=== PATIENT | female | born 1990 | race Caucasian/White ===

== ENCOUNTER 2020-11-23 11:05 | Emergency (ER) | payer OTHER, SELFPAY ==
[2020-11-23 11:56] VITALS: BP 130/74; PULSE 69; RESP 16; TEMP 35.6; O2SAT 99; BMI 39.6
--- NOTE | 2020-11-23 12:07 | ED.GENADULT ---
HPI - General Adult General Chief complaint: General Medical Stated complaint: MEDICATION Time Seen by Provider: 11/23/20 13:18 Source: patient Mode of arrival: ambulatory Limitations: no limitations History of Present Illness HPI narrative: Patient presents to ED for methadone. Patient recently discharged from [facility] and is going to sober house and her last dose was Thursday. Patient does not want to go into withdrawal. Patient denies any physical complaints Related Data Allergies Allergy/AdvReac Type Severity Reaction Status Date / Time ENVIRONMENTAL Allergy Unknown RUNNY Uncoded 01/19/20 17:52 NOSE, ITCHY EYES Review of Systems Review of Systems: Yes all other systems are reviewed and are negative Constitutional: Constitutional: Reports as per HPI and Reports no additional constitutional complaints Eyes: Eyes: Reports as per HPI and Reports no additional eye complaints ENT: Reports system reviewed and no additional complaints, except as documented and Reports as per HPI Cardiovascular: Cardiovascular: Reports as per HPI and Reports no additional cardiovascular complaints Respiratory: Respiratory: Reports as per HPI and Reports no additional respiratory complaints Gastrointestinal: Gastrointestinal: Reports as per HPI and Reports no additional gastrointestinal complaints Genitourinary: Genitourinary: Reports no additional female genitourinary complaints and Reports as per HPI Musculoskeletal: Musculoskeletal: Reports no additional musculoskeletal complaints and Reports as per HPI Neurologic: Reports system reviewed and no additional complaints, except as documented and Reports as per HPI Psychiatric: Psychiatric: Reports no additional psychiatric complaints and Reports as per HPI PMFSH Past Medical History Medical History (Updated 11/23/20 @ 12:54 by BRANDI Villafuerte) Kidney stones Substance abuse Surgical History (Updated 11/23/20 @ 12:02 by Blanca Calderón) H/O wrist surgery Previous section Social History Social History Advance Directives: Yes Advance Directives Information Provided: Yes Advance Directives on File: No Patient : No Physical Exam Vital Signs: Vital Signs: Last Vital Signs Temp 96.0 F L 11/23/20 11:56 Pulse 69 11/23/20 11:56 Resp 16 11/23/20 11:56 BP 130/74 11/23/20 11:56 Pulse Ox 99 11/23/20 11:56 Body Mass Index 39.6 Const: General: cooperative, healthy appearing, comfortable, no acute distress, well developed, alert, awake and Physically active Orientation/consciousness: oriented to time and patient oriented x3 HENMT: Head: Yes normal to inspection, Yes No palpable skull fracture present, Yes normocephalic and Yes atraumatic Eyes: General: appearance normal, both eyes and all related structures Neck: Neck: Yes normal visual inspection, Yes full ROM, Yes no lymphadenopathy, Yes no meningeal signs, Yes trachea midline, Yes supple and No tender Chest: Chest palpation & inspection: normal inspection of the chest and normal palpation of entire chest wall Resp: Effort & Inspection: normal respiratory effort and able to speak in complete sentences Auscultation: clear to auscultation bilaterally Cardio: Jugular venous distension: no JVD Heart sounds: S1 normal heart sound present and S2 normal heart sound present GI: Inspection: Yes normal to inspection and No abdominal wall ecchymosis Palpation (GI): Soft to palpation, not firm, nontender, no guarding and not rigid : General: No CVA tenderness and Yes no CVA tenderness Back/Spine/Pelvis: Back: no CVA tenderness, No CVA tenderness and No back tenderness Skin: General skin exam: no rashes or lesions noted and elasticity normal Neuro: General: oriented to time, patient oriented x3, gait normal, no meningeal signs and CN's II-XI intact bilaterally Cranial nerves: Yes CN's II-XII intact bilaterally Extrem: General: Yes normal to inspection and Yes full ROM Psych: Appearance: grossly normal, well kempt and not disheveled Course Course Course Narrative: Waiting for confirmation for methadone dose Reevaluation(s) Reevaluation #1: Methadone dose was verified and ordered. 90 mg ordered Time: 12:53 Medical Decision Making MDM Narrative Medical decision making narrative: Medication refill Discharge Plan Discharge Clinical Impression: Medication refill Patient Disposition: Home, Self-Care Instructions: Medicine Refill (ED) Additional Instructions: You were given you a methadone dose during this ER visit. Return to the ED for any concerning symptoms. Please follow-up with your PCP Interventions: ED Discharge Assessment Last Done: 11/23/20 13:35 Print Language: [place]
== END 2020-11-23 13:40 | disposition home or self-care (01) ==
PROVIDERS: Emergency Provider Emergency Medicine Emergency Medical Services
DX: Z76.0 Encounter for issue of repeat prescription (principal)
CPT/HCPCS: 99283

== ENCOUNTER 2023-03-29 12:15 | Emergency (ER) | payer OTHER, SELFPAY ==
[2023-03-29 13:15] VITALS: BP 90/37; PULSE 54; RESP 16; TEMP 36.3; O2SAT 97; BMI 29.1
--- NOTE | 2023-03-29 13:15 | ED_ITS ---
HPI - General Adult General Chief complaint: Medical Clearance Stated complaint: Med refill Time Seen by Provider: 03/29/23 13:19 Source: patient, RN notes reviewed and old records reviewed Mode of arrival: ambulatory History of Present Illness HPI narrative: 33-year-old female with a past medical history of substance abuse on methadone presenting to ED requesting methadone dosing. Admits usually receives dosing at [facility] in [place], however is visiting sister in this area. Reports receiving methadone dose at [facility] the past few days, patient presented with last dose letter for 125 mg from Thursday and Thursday. Denies drug use, SI/HI Related Data Allergies Allergy/AdvReac Type Severity Reaction Status Date / Time ENVIRONMENTAL Allergy Unknown RUNNY Uncoded 03/29/23 13:18 NOSE, ITCHY EYES Review of Systems Review of Systems: Constitutional: No Fever, No Chills, No Fatigue, No Malaise ENT/Mouth: No Ear Pain, No Nasal Congestion, No sore throat Cardiovascular: No Chest Pain, No SOB Respiratory: No Cough, No Sputum,No Dyspnea Gastrointestinal: No Nausea, No Vomiting, No Diarrhea, No Constipation, No Abdominal pain Musculoskeletal: No joint pain, No Myalgias, No Joint Swelling Skin: No Skin Lesions, No rash Neuro: No Weakness,No Headache Psych: No Anxiety/Panic, No Depression, No SI/HI/AH/VH, No Social Issues Yes all other systems are reviewed and are negative Constitutional: Constitutional: Reports as per HPI [facility] Past Medical History Attestation statement: The following information was validated with the patient. Source: old records reviewed Medical History Kidney stones Substance abuse Surgical History H/O wrist surgery Previous section Social History Smoked in Last 30 Days: Yes Advance Directives: No Advance Directives Information Provided: No Patient : No Physical Exam ED Vital Signs: Vital Signs - 24 hr 03/29/23 13:15 Temperature 97.3 F Pulse Rate 54 Respiratory Rate 16 Blood Pressure 90/37 L Pulse Oximetry 97 Oxygen Delivery Method Room Air BMI result Body Mass Index 29.1 Const General: cooperative, healthy appearing and no acute distress Orientation/consciousness: patient oriented x3 Limitations: no limitations HENMT Head: Yes normal to inspection and Yes atraumatic Ears: hearing grossly normal bilaterally General nose exam: Normal external nose present Face and sinus: Yes normal facial exam Eyes General: appearance normal, both eyes and all related structures EOM: EOMs intact bilaterally Neck Neck: Yes normal visual inspection and Yes no meningeal signs Resp Effort & Inspection: normal respiratory effort and no respiratory distress Cardio Rate: regular rate Skin Rashes: no rashes Wounds: no wounds Neuro General: patient oriented x3, tone normal and no meningeal signs Cranial nerves: Yes CN's II-XII intact bilaterally Gait exam (Neuro): Normal gait present Extrem General: Yes normal to inspection Course Course Course Narrative: -urine negative. Tox screen positive for fentanyl and THC > patient dosed in the ED w/Methadone Results discussed with patient including worrisome signs and symptoms and strict return precautions, and when to return to the emergency department. They verbalized understanding and feel safe for discharge at this time. Medications Administered Discontinued Medications Generic Name Dose Route Start Last Admin Trade Name Nixon PRN Reason Stop Dose Admin Methadone HCl 125 mg 03/29/23 13:17 03/29/23 13:39 Methadone Hcl 20 Mg/2 Ml Oral.Conc PO 03/29/23 13:18 125 mg ONCE ONE Administration Medical Decision Making Medical Decision Making [facility] Narrative: 33-year-old female with a past medical history of substance abuse on methadone presenting to ED requesting methadone dosing. On exam vital signs stable, NAD, nontoxic appearing, patient requesting methadone dosing, last dose letter presented. Will obtain tox screen, urine per patient request and given 125 mg methadone dosing today in the ED. Will provide patient with the last dosed letter Please refer to course for remaining clinical decision making, interpretation of labs/imaging results, and discussions with consultants and/or family members. Differential Diagnosis Differential Diagnoses: The differential diagnosis associated with the presentation includes As above Lab Data [facility] Lab Attestation statement: I reviewed the patient's lab results. Labs: Lab Results 03/29/23 Range/Units 13:48 Urine Test NEGATIVE (NEGATIVE) Urine Opiates Screen Not Detected (Not Detect) Urine Fentanyl Screen POSITIVE H (Not Detect) Ur Barbiturates Screen Not Detected (Not Detect) Ur Phencyclidine Scrn Not Detected (Not Detect) Ur Amphetamines Screen Not Detected (Not Detect) U Benzodiazepines Scrn Not Detected (Not Detect) Urine Cocaine Screen Not Detected (Not Detect) U Marijuana (THC) Screen POSITIVE H (Not Detect) External Record Review External record reviewed: Inpatient record, Office record, Outpatient record, Prior outpatient labs, Prior outpatient radiology, Primary care record and Outside ED record Tests considered The following testing was considered but not selected: As above Social Determinants Patient?s care significantly limited by Social Determinants of Health including: Low income and Alcoholism and drug addiction in family Discharge Plan Discharge Clinical Impression: Methadone dependence Patient Disposition: Home, Self-Care Instructions: Narcotic Use Disorder (ED) Additional Instructions: your drug screen was positive for Fentanyl & THC AVOID DRUGS AND ALCOHOL Referrals: [facility] [Provider Group] [facility] [Outside] Interventions: ED Discharge Assessment Last Done: 03/29/23 14:42 Discharge Date/Time: 03/29/23 14:53
[2023-03-29] MEDS: methADONE HCl 20 MG/2 ML ORAL.CONC 125 MG PO (13:39)
--- NOTE | 2023-03-29 13:52 | PC.NURSE ---
medication administered per provider order. urine obtained and sent to lab.
[2023-03-29 14:01] LABS: UPreg QC Valid YES; Urine Pregnancy NEGATIVE (NEGATIVE)
[2023-03-29 14:11] LABS: Amphetamine Screen Urine Not Detected (Not Detect); Barbiturates, Urine Not Detected (Not Detect); Benzodiazepines Screen Urine Not Detected (Not Detect); Cannabinoid Screen Urine POSITIVE (Not Detect); Cocaine Screen Urine Not Detected (Not Detect); Fentanyl, urine POSITIVE (Not Detect); Opiate Screen Urine Not Detected (Not Detect); Phencyclidine Screen Urine Not Detected (Not Detect)
[2023-03-29 14:37] VITALS: BP 98/38; PULSE 52; RESP 14; O2SAT 96
--- NOTE | 2023-03-29 14:43 | PC.NURSE ---
pt provided w/ last dose letter.
== END 2023-03-29 14:53 | disposition home or self-care (01) ==
PROVIDERS: Physician Assistant; Emergency Provider Emergency Medicine
DX: F11.20 Opioid dependence, uncomplicated (principal); Z76.0 Encounter for issue of repeat prescription; Z79.899 Other long term (current) drug therapy
CPT/HCPCS: 80307; 81025; 99284

== ENCOUNTER 2023-05-01 15:51 | Emergency (ER) | payer OTHER, SELFPAY ==
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
[2023-05-01 16:38] VITALS: BP 90/38; PULSE 40; RESP 16; TEMP 36.3; O2SAT 95; BMI 28.3
--- NOTE | 2023-05-01 16:47 | PC.NURSE ---
RECEIVED CONFIRMATION OF MTD DOSE 125MG, LAST DOSED YESTERDAY AT [facility]
--- NOTE | 2023-05-01 16:49 | ECG_ITS ---
Test Reason : bradicardic Blood Pressure : / mmHG Vent. Rate : 038 BPM Atrial Rate : 038 BPM P-R Int : 150 ms QRS Dur : 082 ms QT Int : 520 ms P-R-T Axes : 059 044 038 degrees QTc Int : 413 ms Marked sinus bradycardia Low voltage QRS Abnormal ECG No previous ECGs available Referred By: Eliza Ansari Electronically Signed By:PEDRITO LAMBERT
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
[2023-05-01] MEDS: methADONE HCl 20 MG/2 ML ORAL.CONC 125 MG PO (17:46)
--- NOTE | 2023-05-01 18:43 | PC.NURSE ---
medicated with Methadone and did not want to wait for paperwork, Eliza VAZ aware
== END 2023-05-01 19:10 | disposition left against medical advice (07) ==
PROVIDERS: Emergency Provider Emergency Medicine
DX: R00.1 Bradycardia, unspecified (principal); F11.90 Opioid use, unspecified, uncomplicated
CPT/HCPCS: 93005; 99283

== ENCOUNTER → 2023-05-01 16:49 | Outpatient (BNV) | payer OTHER, SELFPAY | PROVIDERS: Emergency Provider Emergency Medicine; Visit Provider Internal Medicine | DX: R00.1 Bradycardia, unspecified (principal) | CPT/HCPCS: 93010 ==

== ENCOUNTER 2023-05-02 10:48 | Emergency (ER) | payer OTHER, SELFPAY ==
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
[2023-05-02 11:32] VITALS: BP 97/47; PULSE 50; RESP 18; TEMP 36; O2SAT 97; BMI 28.3
--- NOTE | 2023-05-02 11:41 | HE.PHANOTE ---
RE METHADONE ONE TIME confirmed with provider that this is one time but pt is from out of area. they are getting her involved with recovery team and involving deysi sultana. dose verified with [facility] in [place] on 05/01/23.
[2023-05-02] MEDS: methADONE HCl 20 MG/2 ML ORAL.CONC 125 MG PO (12:08)
--- NOTE | 2023-05-02 12:12 | PC.NURSE ---
Methadone given, awaiting careteam to see patient to give resources, D/C ready at this time
--- NOTE | 2023-05-02 12:28 | MHC.RECOVRN ---
Met with pt in RP after pt presented to the ED in need of methadone dose and assistance with establishing a new OTP. Pt reports doing well with methadone, has 4 months in recovery, currently taking 125 mg daily. Pt reports she has been with [facility] in [place] but has relocated to [place] and needs an OTP. Pt provided with written recovery resources as well as information on [facility]. Pt to present to [facility] tomorrow morning in order to initiate transfer of care from [facility]. Pts referral has been sent to [facility]. Pt to call t/w if questions or concerns arise. RN aware.
== END 2023-05-02 12:34 | disposition home or self-care (01) ==
PROVIDERS: Emergency Provider Emergency Medicine
DX: F11.10 Opioid abuse, uncomplicated (principal); Z71.51 Drug abuse counseling and surveillance of drug abuser
CPT/HCPCS: 99282; 99283

== ENCOUNTER 2023-05-02 21:41 | Emergency (ER) | payer OTHER, SELFPAY ==
[2023-05-02 21:53] VITALS: BP 104/45; PULSE 54; RESP 18; TEMP 36; O2SAT 96; BMI 28.3
[2023-05-02 22:22] LABS: MANUAL DIFF FLAG NO
[2023-05-02 22:23] LABS: Basophils Percent Auto 0.5 % (0-2); Eosinophils Absolute Auto 0.2 X10*3/uL (0.0-0.4); Eosinophils Percent Auto 2.3 % (0-4); Hematocrit 38.5 % (37.0-47.0); Hemoglobin 12.7 g/dl (12.0-16.0); Imm Gran Abs Auto 0.02 X10*3/uL (0.00-0.03); Imm Gran Pct Auto 0.2 % (0.0-0.4); Lymphocytes Absolute Auto 2.6 X10*3/uL (1.2-4.9); Lymphocytes Percent Auto 30.6 % (20-40); Mean Corpuscular Hemoglobin 28.7 pg (27.0-33.0); Mean Corpuscular Volume 86.9 fL (80.0-98.0); Mean Platelet Volume 9.4 fL (9.4-12.3); Monocytes Absolute Auto 0.4 X10*3/uL (0.1-1.2); Monocytes Percent Auto 4.9 % (2-11); Neutrophils Absolute Auto 5.2 x10*3/uL (2.0-8.3); Neutrophils Percent Auto 61.5 % (45-73); Platelet Count 266 X10*3/uL (160-400); Red Blood Count 4.43 X10*6/uL (4.20-5.50); Red Cell Distribution Width 13.6 % (11.0-16.0); White Blood Count 8.4 X10*3/uL (4.8-10.8)
[2023-05-02 22:25] LABS: Appearance Urine Clear; Color Urine Yellow; Glucose Urine UA Negative (Negative); Leukocyte Esterase Urine Negative (Negative); Nitrite Urine Negative (Negative); PH 5.5 (5.0-9.0); Specific Gravity - Urine 1.025 (1.005-1.025); Urine Blood Negative (Negative); Urine Ketones Negative (Negative); Urine Protein Negative (Neg-Trace)
[2023-05-02 22:26] LABS: UPreg QC Valid YES; Urine Pregnancy NEGATIVE (NEGATIVE)
[2023-05-02 22:45] LABS: Alanine Aminotransferase 24 U/L (0-31); Albumin Level 4.1 g/dL (3.5-5.0); Alkaline Phosphatase 105 U/L (39-117); Anion Gap 13 (12-20); Aspartate Amino Transferase 29 U/L (5-31); Bilirubin Total 0.3 mg/dL (0.0-1.0); Blood Urea Nitrogen 13 mg/dL (9-16); Calcium 9.5 mg/dL (8.4-10.2); Carbon Dioxide 26 mmol/L (22-29); Chloride 103 mmol/L (96-108); Estimated Glomerular Filt Rate > 60; Glucose Random 106 mg/dL (60-115); Sodium 138 mmol/L (135-145); Total Protein 7.5 g/dL (6.5-8.0)
[2023-05-02 22:49] LABS: HCG Quantitative < 2 mIU/mL
[2023-05-02 23:01] LABS: Influenza A PCR NEGATIVE (Negative); Influenza B PCR NEGATIVE (Negative); Resp Syncy Virus RNA Qual PCR NEGATIVE (Negative); SARS COV2 PCR INHOUSE NEGATIVE (Negative)
[2023-05-03 05:16] VITALS: BP 97/36; PULSE 46; RESP 17; TEMP 36.6; O2SAT 97
== END 2023-05-03 07:05 | disposition left against medical advice (07) ==
PROVIDERS: Emergency Provider Emergency Medicine
DX: N92.6 Irregular menstruation, unspecified (principal); Z20.822 Contact with and (suspected) exposure to COVID-19; Z20.828 Contact with and (suspected) exposure to other viral communicable diseases
CPT/HCPCS: 0241U; 80053; 81003; 81025; 84702; 85025; 99282; 99283

== ENCOUNTER 2023-05-03 07:16 | Emergency (ER) | payer OTHER, SELFPAY ==
[2023-05-03 07:24] VITALS: BP 106/41; PULSE 50; RESP 16; TEMP 37; O2SAT 96; BMI 28.5
--- NOTE | 2023-05-03 09:50 | ED.GENADULT ---
HPI - General Adult General Chief complaint: General Medical Stated complaint: Needs methadone dose/vaginal bleeding Time Seen by Provider: 05/03/23 09:44 Source: patient and old records reviewed Mode of arrival: ambulatory Limitations: no limitations History of Present Illness HPI narrative: 33 yo female with opiate use disorder needs dose of methadone states clinic wasn't opened ( it is open [facility] [employer] MANAGER confirmed it is). cannot come back tomorrow she is aware she is receiving 3rd dose now in our ED. also irregular periods wanted to confirm she is not . she has no OB aware I cannot Rx OCPs complaint: methadone dose Onset (ago): day(s) (1) Radiation: non-radiation Severity: mild Relieving factors: none Exacerbating factors: none Associated symptoms: other (irregular menses, spotting) Treatments prior to arrival: none Related Data Allergies Allergy/AdvReac Type Severity Reaction Status Date / Time ENVIRONMENTAL Allergy Unknown RUNNY Uncoded 05/02/23 21:53 NOSE, ITCHY EYES Review of Systems Review of Systems: Constitutional : No Fever, No Chills ENT/Mouth : No sore throat, No Rhinorrhea Eyes: No Eye Pain, No Redness Cardiovascular : No Chest Pain, No SOB Respiratory : No Cough, No Sputum, No Wheezing Gastrointestinal : no Nausea, No Vomiting, No Diarrhea, positive abdominal pain, Genitourinary : positive irregular bleeding, No Dysuria, No Urinary Frequency Musculoskeletal : No Myalgias Skin : No rash Neuro : No Weakness, No Headache Psych : No Anxiety/Panic, No Depression All other systems reviewed and are negative PMFSH Past Medical History Attestation statement: The following information was validated with the patient. Source: old records reviewed Medical History Kidney stones Substance abuse Surgical History H/O wrist surgery Previous section Social History Social History (Updated 05/03/23 @ 09:54 by Jessika Graves DO) Patient Tobacco Use Status: Tobacco use Unknown Physical Exam ED Vital Signs: Vital Signs - 24 hr 05/03/23 07:24 Temperature 98.6 F Pulse Rate 50 Respiratory Rate 16 Blood Pressure 106/41 L Pulse Oximetry 96 Oxygen Delivery Method Room Air BMI result Body Mass Index 28.5 Appearance: Alert. Oriented X3. No acute distress. Eyes: Pupils equal, round and reactive to light. ENT: Pharynx normal. Neck: Normal inspection. Neck supple. CVS: Pulses normal. Respiratory: No respiratory distress. Abdomen: atraumatic Skin: Skin warm and dry. Normal skin color. Normal skin turgor. Extremities: No lower extremity edema. Neuro: Oriented X 3. No motor deficit. No sensory deficit. Medical Decision Making Medical Decision Making [facility] Narrative: 33 yo female with opiate use disorder here with 1. needs methadone dose 125 would be 3rd dose addiction team aware and at bedside will order. 2. irregular menses - just had negative preg test yesterday no sig bleeding recent H/H stable - feels better with neg preg test can follow up with OBGYn outpatient Differential Diagnosis Differential Diagnoses: The differential diagnosis associated with the presentation includes opiate use disorder, DUB Consult Healthcare Provider Management of the patient was discussed with: Bridge Builder (cuong AVZ) Lab Data [facility] Lab Attestation statement: I reviewed the patient's lab results. normal H/H, neg preg test External Record Review External record reviewed: Inpatient record Discharge Plan Discharge Clinical Impression: DUB (dysfunctional uterine bleeding) Opiate dependence Qualifiers: Substance use status: uncomplicated Qualified Code(s): F11.20 - Opioid dependence, uncomplicated Instructions: Dysfunctional Uterine Bleeding (ED), Opioid Use Disorder (ED) Additional Instructions: dosed with 125mg methadone at [facility] 05/03/2023 test was negative please follow up with OBGYN and in the methadone clinic on 05/05/23 Referrals: Derrick Gaffney MD [Physician] - (call to follow up with OBGYN)
--- NOTE | 2023-05-03 09:54 | MHC.RECOVRN ---
Met with pt in after pt presented to the ED requesting methadone dose. Pt had presented to the ED on 05/01 and 05/02 for methadone as well. T/w had spoken with pt on 05/02 and instructed pt to present to [facility] this morning to begin transfer from [facility]. Pt reports she presented at 0600 and the OTP was closed and there was no sign saying what time they were open today, if at all. Subsequently, pt re-presented to the ED. T/w called [facility] to confirm they are open, they are, but close at 10AM. They are closed tomorrow for the holiday. Pt educated regarding ED dosing (max 3 days) and informed her she will not be able to dose at [facility] tomorrow. Pt encouraged to go to [facility] ED for methadone dose 05/04 and present to [facility] on 05/05 at 8AM. Pt verbalizes understanding. Pt will receive dose today as well as last dose letter. Pts referral has been sent to [facility]. Pt denies questions or concerns for t/w. Discussed with ED provider.
[2023-05-03] MEDS: methADONE HCl 20 MG/2 ML ORAL.CONC 125 MG PO (10:14)
[2023-05-03 10:26] VITALS: BP 115/58; PULSE 66; RESP 14; TEMP 36.8; O2SAT 97
== END 2023-05-03 10:28 | disposition home or self-care (01) ==
PROVIDERS: Emergency Provider Emergency Medicine
DX: F11.20 Opioid dependence, uncomplicated (principal); N93.8 Other specified abnormal uterine and vaginal bleeding
CPT/HCPCS: 99283

== ENCOUNTER 2023-05-09 13:48 | Emergency (ER) | payer OTHER, SELFPAY ==
[2023-05-09 14:42] VITALS: BP 104/32; PULSE 52; RESP 18; TEMP 36.5; O2SAT 98; BMI 34.0
--- NOTE | 2023-05-09 14:43 | ED.GENADULT ---
HPI - General Adult General Chief complaint: General Medical Stated complaint: medication Time Seen by Provider: 05/09/23 14:50 Source: patient Mode of arrival: ambulatory Limitations: no limitations History of Present Illness HPI narrative: 33 yo female with history of OUD here seeking methadone dose. She last received it yesterday. Her clinic closed early today. Does not have last dose letter. Her dose is 125mg Related Data Allergies Allergy/AdvReac Type Severity Reaction Status Date / Time ENVIRONMENTAL Allergy Unknown RUNNY Uncoded 05/09/23 14:42 NOSE, ITCHY EYES Review of Systems Review of Systems: Yes all other systems are reviewed and are negative Constitutional: Constitutional: Reports no additional constitutional complaints, Denies body ache(s), Denies chills, Denies fever(s), Denies headache(s) and Denies weakness Eyes: Eyes: Reports no additional eye complaints and Denies change in vision ENT: Reports system reviewed and no additional complaints, except as documented, Denies dizziness, Denies headache(s), Denies nasal congestion, Denies nasal discharge and Denies neck pain Cardiovascular: Cardiovascular: Reports no additional cardiovascular complaints, Denies chest pain, Denies leg edema and Denies dyspnea Respiratory: Respiratory: Reports no additional respiratory complaints, Denies cough and Denies dyspnea Gastrointestinal: Gastrointestinal: Reports no additional gastrointestinal complaints, Denies abdominal pain, Denies diarrhea, Denies nausea and Denies vomiting Genitourinary: Genitourinary: Reports no additional female genitourinary complaints and Denies urinary incontinence Musculoskeletal: Musculoskeletal: Reports no additional musculoskeletal complaints, Denies back pain, Denies arthralgias, Denies joint swelling, Denies neck pain, Denies numbness and Denies tingling Integumentary/Breasts: Skin/Breast: Reports system reviewed and no additional complaints, except as docu and Denies rash Neurologic: Reports system reviewed and no additional complaints, except as documented, Denies Abnormal speech present, Denies dizziness, Denies headache(s), Denies numbness, Denies tingling and Denies weakness PMFSH Past Medical History Attestation statement: The following information was validated with the patient. Source: old records reviewed and nursing notes reviewed Onset Date is defined in the Problem List Problems that require an onset date and time if occurred within 24 hrs of arrival to the ED Aortic Dissection and Rupture; Neurologic impairment; Cardiopulmonary Arrest; Endotracheal Intubation; Insertion or Replacement of Mechanical Circulatory Assist Device Medical History Kidney stones Substance abuse Surgical History H/O wrist surgery Previous section Social History Social History Patient Tobacco Use Status: Tobacco use Unknown Advance Directives: No Advance Directives Information Provided: No Physical Exam ED Vital Signs: Vital Signs - 24 hr 05/09/23 14:42 Temperature 97.7 F Pulse Rate 52 Respiratory Rate 18 Blood Pressure 104/32 L Pulse Oximetry 98 Oxygen Delivery Method Room Air BMI result Body Mass Index 34.0 Const General: cooperative, healthy appearing, comfortable and no acute distress Orientation/consciousness: patient oriented x3 Limitations: no limitations HENMT Head: Yes normal to inspection Ears: hearing grossly normal bilaterally General nose exam: Normal external nose present Face and sinus: Yes normal facial exam Mouth: Normal oral and palatal mucosa present Throat: Yes posterior oropharynx normal Eyes General: appearance normal, both eyes and all related structures Pupils: Equal, round and reactive pupils present Neck Neck: Yes normal visual inspection Chest Chest palpation & inspection: normal inspection of the chest Resp Effort & Inspection: normal respiratory effort Auscultation: clear to auscultation bilaterally Cardio Rate: regular rate Rhythm: regular rhythm Peripheral pulses: Peripheral pulses 2+ throughout GI Inspection: Yes normal to inspection Palpation (GI): Soft to palpation and nontender Auscultation: normal bowel sounds Back/Spine/Pelvis Thoracic/Lumbar Spine: thoracic and lumbar spine normal to inspection Skin General skin exam: no rashes or lesions noted Neuro General: patient oriented x3, no focal motor deficits and normal sensation to monofilament Cranial nerves: Yes Equal, round and reactive pupils present Cognition (Neuro): normal cognition Speech: No Abnormal speech present Gait exam (Neuro): Normal gait present Motor exam (neuro): 5/5 motor strength present throughout Extrem General: Yes normal to inspection Course Course Course Narrative: This is a rapid medical exam. Deferred additional HPI, ROS, PE to primary provider. 33 yo female here seeking methadone dose. She last received it yesterday. Her clinic closed early today. Does not have last dose letter. Will need nursing to confirm this prior to dosing VSS Medical Decision Making Medical Decision Making MDM Narrative: 33 yo female with history of OUD here seeking methadone dose. She last received it yesterday. Her clinic closed early today. Does not have last dose letter. Her dose is 125mg Confirmed does with M[facility] at [facility] [phone] Last dose was May 08 No additional complaints Will dose here in the ED Differential Diagnosis Differential Diagnoses: The differential diagnosis associated with the presentation includes OUD External Record Review External record reviewed: Outpatient record Discharge Plan Discharge Clinical Impression: Opioid use disorder Patient Disposition: Home, Self-Care Instructions: Opioid Use Disorder (ED) Additional Instructions: Cherry received 125mg of methadone on 05/09/23 Referrals: Physician,Inga J [Primary Care Provider] - 1 week
--- NOTE | 2023-05-09 16:20 | HE.PHANOTE ---
methadone verification form received, patient dose 125 mg, last dose 05/08/23, [facility] in [place]
== END 2023-05-09 16:44 | disposition home or self-care (01) ==
PROVIDERS: Emergency Provider Student in an Organized Health Care Education/Training Program
DX: F11.20 Opioid dependence, uncomplicated (principal); F19.10 Other psychoactive substance abuse, uncomplicated
CPT/HCPCS: 99282; 99283

== ENCOUNTER 2023-05-21 16:47 | Emergency (ER) | payer OTHER, SELFPAY ==
--- NOTE | ~2023-05-21 | XR_ITS ---
EXAMINATION: XR CHEST CLINICAL INFORMATION: Productive cough COMPARISON: None TECHNIQUE: 2 views of the chest FINDINGS: Lines and tubes: None. Clear lungs. No pleural effusion. No pneumothorax. Normal cardiomediastinal silhouette. XR/XR chest 2V IMPRESSION: * Clear lungs.
[2023-05-21 17:14] VITALS: BP 102/41; PULSE 56; RESP 16; TEMP 36; O2SAT 97; BMI 34.1
--- NOTE | 2023-05-21 17:18 | ED.GENADULT ---
HPI - General Adult General Chief complaint: General Medical Stated complaint: sore throat, hurts to swallow Time Seen by Provider: 05/21/23 17:45 Source: patient, RN notes reviewed and old records reviewed Mode of arrival: ambulatory History of Present Illness HPI narrative: 33-year-old female with no significant past medical history presenting to the ED complaining of URI symptoms with productive cough, rhinorrhea, congestion, mild SOB x weeks, and sore throat times this morning. Reports painful swallowing. Denies fever/chills, chest pain, ear pain, inability to swallow Related Data Previous Rx's Medication Instructions Recorded prednisone 20 mg tablet 40 mg (2 x 20 mg) PO DAILY 5 days 05/21/23 #10 tabs Allergies Allergy/AdvReac Type Severity Reaction Status Date / Time ENVIRONMENTAL Allergy Unknown RUNNY Uncoded 05/21/23 17:14 NOSE, ITCHY EYES Review of Systems Review of Systems: Constitutional: No Fever, No Chills ENT/Mouth: No Ear Pain,+Nasal Congestion, No Sinus Pain, No Hoarseness, +sore throat,+ Rhinorrhea, No Swallowing Difficulty Cardiovascular: No Chest Pain, + SOB Respiratory: +Cough, No Sputum, +Wheezing Gastrointestinal: No Nausea, No Vomiting, No Diarrhea, No Constipation, No Abdominal pain Musculoskeletal: No joint pain Skin: No Skin Lesions, No rash Neuro: No Weakness Yes all other systems are reviewed and are negative Constitutional: Constitutional: Reports as per [facility] Past Medical History Attestation statement: The following information was validated with the patient. Source: old records reviewed Onset Date is defined in the Problem List Problems that require an onset date and time if occurred within 24 hrs of arrival to the ED Aortic Dissection and Rupture; Neurologic impairment; Cardiopulmonary Arrest; Endotracheal Intubation; Insertion or Replacement of Mechanical Circulatory Assist Device Medical History Kidney stones Substance abuse Surgical History H/O wrist surgery Previous section Social History Social History Patient Tobacco Use Status: Tobacco use Unknown Advance Directives: No Advance Directives Information Provided: No Physical Exam ED Vital Signs: Vital Signs - 24 hr 05/21/23 17:14 05/21/23 18:00 Temperature 96.8 F 97.4 F Pulse Rate 56 50 Respiratory Rate 16 16 Blood Pressure 102/41 L 99/46 L Pulse Oximetry 97 98 Oxygen Delivery Method Room Air BMI result Body Mass Index 34.1 Const General: cooperative, healthy appearing and no acute distress Orientation/consciousness: patient oriented x3 Limitations: no limitations HENMT Head: Yes normal to inspection and Yes atraumatic Ears: hearing grossly normal bilaterally, external ears normal, TM's normal bilaterally and mastoids normal General nose exam: Normal external nose present Face and sinus: Yes normal facial exam Mouth: no drooling Throat: Yes tonsils normal, Yes uvula midline, No peritonsillar mass, Yes posterior oropharynx abnormal (Erythematous. No exudates), No uvula laterally displaced and No uvular edema Eyes General: appearance normal, both eyes and all related structures EOM: EOMs intact bilaterally Neck Neck: Yes normal visual inspection and Yes no meningeal signs Resp Effort & Inspection: normal respiratory effort and no respiratory distress Auscultation: clear to auscultation bilaterally and no wheezes Cardio Rate: regular rate Heart sounds: S1 normal heart sound present and S2 normal heart sound present Skin Rashes: no rashes Wounds: no wounds Neuro General: patient oriented x3, tone normal and no meningeal signs Cranial nerves: Yes CN's II-XII intact bilaterally Gait exam (Neuro): Normal gait present Extrem General: Yes normal to inspection and Yes no pedal edema Course Course Course Narrative: RME- 33-year-old female presents for evaluation of a sore throat. She endorses having cold symptoms earlier but her sore throat got worse today. Plan for viral swabs and strep testing -COVID/FLU, & rapid strep negative Results discussed with patient including worrisome signs and symptoms and strict return precautions, and when to return to the emergency department. They verbalized understanding and feel safe for discharge at this time. Medical Decision Making Medical Decision Making MDM Narrative: 33-year-old female with no significant past medical history presenting to the ED complaining of URI symptoms with productive cough, rhinorrhea, congestion, mild SOB x weeks, and sore throat times this morning. On exam vital signs stable, NAD, nontoxic appearing, physical exam as noted above. Lungs CTA. Posterior oropharyngeal erythema noted without tonsillar exudates. Uvula midline. Concern for viral illness vs pneumonia/bronchitis vs strep pharyngitis. No evidence of [employer]/retropharyngeal abscess. Unlikely ACS/PE Plan: Viral testing, rapid strep, CXR, albuterol inhaler Please refer to course for remaining clinical decision making, interpretation of labs/imaging results, and discussions with consultants and/or family members. Differential Diagnosis Differential Diagnoses: The differential diagnosis associated with the presentation includes As above Lab Data MDM Lab Attestation statement: I reviewed the patient's lab results. Labs: Lab Results 05/21/23 Range/Units 17:28 COVID-19 ([place]) Negative (Negative) COVID-19 Clin Com See Note Influenza Type A ([place]) Negative (Negative) Influenza Type B ([place]) Negative (Negative) Influenza A & B Note See Note S. pyogenes GrpA [place] Negative (Negative) Independent Interpretation I performed an independent interpretation of an: Plain X-Ray External Record Review External record reviewed: Inpatient record, Office record, Outpatient record, Prior outpatient labs, Prior outpatient radiology, Primary care record and Outside ED record Tests considered The following testing was considered but not selected: As above Prescription Management I considered prescription management with: Antibiotic Social Determinants Patient?s care significantly limited by Social Determinants of Health including: Low income and Alcoholism and drug addiction in family Discharge Plan Discharge Clinical Impression: Bronchitis Patient Disposition: Home, Self-Care Instructions: Acute Bronchitis (ED) Additional Instructions: You tested negative for COVID, flu, and strep Your x-ray is unremarkable Use albuterol inhaler at home as needed for shortness of breath/wheezing In addition take prednisone Follow-up with her doctor If symptoms persist or worsen return to the ED Prescriptions: New prednisone 20 mg tablet 40 mg PO DAILY 5 Days Qty: 10 0RF Referrals: Physician,Unknown J [Primary Care Provider] -
[2023-05-21 17:43] LABS: IDNOW Serial# 08D9AD1C; Strep A Nucleic Acid Negative (Negative)
[2023-05-21 17:48] LABS: COVID-19 Test Negative (Negative); IDNOW Serial# 152EDE1D
[2023-05-21 17:52] LABS: IDNOW Serial# 9DB6401D; Influenza A Negative (Negative); Influenza B2 Negative (Negative)
[2023-05-21 18:00] VITALS: BP 99/46; PULSE 50; RESP 16; TEMP 36.3; O2SAT 98
[2023-05-21] MEDS: Albuterol Sulfate 90 MCG 8 GM INHALER 4 PUFF INHALE (19:11)
== END 2023-05-21 19:34 | disposition home or self-care (01) ==
PROVIDERS: Physician Assistant; Emergency Provider Emergency Medicine
DX: J40 Bronchitis, not specified as acute or chronic (principal); J02.9 Acute pharyngitis, unspecified; R13.10 Dysphagia, unspecified; R06.02 Shortness of breath; Z11.52 Encounter for screening for COVID-19; Z20.828 Contact with and (suspected) exposure to other viral communicable diseases
CPT/HCPCS: 71046; 87502; 87635; 87651; 99283; 99284

== ENCOUNTER 2023-11-06 09:47 | Emergency (ER) | payer OTHER, SELFPAY ==
[2023-11-06 09:56] VITALS: BP 117/60; PULSE 60; RESP 16; TEMP 37; O2SAT 98; BMI 31.6
--- NOTE | 2023-11-06 10:20 | HE.PHANOTE ---
RE: METHADONE DOSING Last methadone dose of 90 mg was given on 11/05/23 Per Lawanda MCCARTNEY at [facility] [phone].
[2023-11-06] MEDS: methADONE HCl 20 MG/2 ML ORAL.CONC 90 MG PO (10:28)
--- NOTE | 2023-11-06 10:34 | ED.GENADULT ---
HPI - General Adult General Chief complaint: General Medical Stated complaint: Methadone dose Time Seen by Provider: 11/06/23 10:13 Source: patient Mode of arrival: ambulatory Limitations: no limitations History of Present Illness ED Provider: Gomez Apodaca PA-C HPI narrative: 33-year-old female history of polysubstance abuse presents to ED for methadone use. Patient has missed appointment to go to clinic for methadone dose. Patient denies any abdominal pain, nausea, vomiting, sweats, or chills. Patient states no other physical complaints. Patient states taking 90 mg methadone. Related Data Home Medications ?Medication ?Instructions ?Recorded ?Confirmed methadone 10 mg/mL oral 90 mg PO DAILY 11/06/23 11/06/23 concentrate (Methadone Intensol) Previous Rx's ?Medication ?Instructions ?Recorded prednisone 20 mg tablet 40 mg (2 x 20 mg) PO DAILY 5 days 05/21/23 #10 tabs Allergies Allergy/AdvReac Type Severity Reaction Status Date / Time ENVIRONMENTAL Allergy Unknown RUNNY Uncoded 11/07/23 09:34 NOSE, ITCHY EYES Review of Systems Review of Systems: methadone dose Yes all other systems are reviewed and are negative PMFSH Past Medical History Medical History Kidney stones Substance abuse Surgical History H/O wrist surgery Previous section Social History Social History Patient Tobacco Use Status: Tobacco use Unknown Advance Directives: No Advance Directives Information Provided: No Do you have a plan to hurt others: No Plan Physical Exam ED Vital Signs: Vital Signs - 24 hr 11/06/23 09:56 Temperature 98.6 F Pulse Rate 60 Respiratory Rate 16 Blood Pressure 117/60 Pulse Oximetry 98 Oxygen Delivery Method Room Air BMI result Body Mass Index 31.6 Const General: cooperative, healthy appearing, comfortable, no acute distress, well developed, alert, awake and Physically active Orientation/consciousness: patient oriented x3 HENMT Head: Yes normal to inspection, Yes No palpable skull fracture present, Yes normocephalic and Yes atraumatic Eyes General: appearance normal, both eyes and all related structures Neck Neck: Yes normal visual inspection, Yes full ROM, Yes no lymphadenopathy, Yes no meningeal signs, Yes trachea midline, Yes supple, No anterior neck swelling and No tender Chest Chest palpation & inspection: normal inspection of the chest and normal palpation of entire chest wall Resp Effort & Inspection: normal respiratory effort and able to speak in complete sentences Auscultation: clear to auscultation bilaterally Cardio Jugular venous distension: no JVD Heart sounds: S1 normal heart sound present and S2 normal heart sound present GI Inspection: Yes normal to inspection Palpation (GI): Soft to palpation, not firm, nontender, no guarding and not rigid General: No CVA tenderness and Yes no CVA tenderness Back/Spine/Pelvis Back: no CVA tenderness, No CVA tenderness and No back tenderness Skin General skin exam: no rashes or lesions noted, elasticity normal and turgor normal Neuro General: patient oriented x3, gait normal, tone normal, moves all extremities, no meningeal signs, no focal motor deficits, CN's II-XI intact bilaterally and normal sensation to monofilament Extrem General: Yes normal to inspection, Yes full ROM and Yes capillary refill normal Psych Appearance: grossly normal, well kempt and not disheveled Medications Administered Discontinued Medications Generic Name Dose Route Start Last Admin Trade Name Reubenq PRN Reason Stop Dose Admin Methadone HCl 90 mg 11/06/23 10:17 11/06/23 10:28 Methadone Hcl 20 Mg/2 Ml Oral.Conc PO 11/06/23 10:18 90 mg ONCE ONE Administration Medical Decision Making Medical Decision Making [facility] Narrative: 33 yold female presents to the ED for methadone use. patient missed her appointment at the [facility]. patient states she takes 90mg of methadone. patient states no physical complaints. patient explained worrisome signs and informed to return to the ED immeidatlety. Differential Diagnosis Differential Diagnoses: The differential diagnosis associated with the presentation includes (methadone use) Admission/Observation Consideration of admission/observation: Escalation of care including admission/observation considered Independent Historian Clinical information obtained from an independent historian. History obtained from or confirmed by: Other (patient) External Record Review External record reviewed: Other (prior visits) Discharge Plan Discharge Clinical Impression: Medication refill Patient Disposition: Home, Self-Care Instructions: Medicine Refill (ED) Additional Instructions: recommend keeping appointment with methadone clinic. Return to the ED for any physical complaints or any other concerning symptoms. Also return to the ED for any suicidal homicidal ideation. Recommend follow-up with primary care provider Prescriptions: No Action prednisone 20 mg tablet 40 mg PO DAILY 5 Days Qty: 10 0RF methadone [Methadone Intensol] 10 mg/mL Concentrate 90 mg PO DAILY Stand Alone Forms: Work/School Release Interventions: ED Discharge Assessment Last Done: 11/06/23 11:14 Discharge Date/Time: 11/06/23 11:15 Print Language: Nepali
[2023-11-06 11:14] VITALS: BP 118/63; PULSE 62; RESP 16; TEMP 36.7; O2SAT 98
== END 2023-11-06 11:15 | disposition home or self-care (01) ==
PROVIDERS: Emergency Provider Emergency Medicine Emergency Medical Services
DX: F11.20 Opioid dependence, uncomplicated (principal)
CPT/HCPCS: 99282; 99283

== ENCOUNTER 2023-11-07 09:29 | Emergency (ER) | payer OTHER, SELFPAY ==
[2023-11-07 09:34] VITALS: BP 106/48; PULSE 73; RESP 16; TEMP 36.7; O2SAT 95; BMI 31.6
--- NOTE | 2023-11-07 09:34 | ED.GENADULT ---
HPI - General Adult General Chief complaint: General Medical Stated complaint: medication Time Seen by Provider: 11/07/23 09:34 Source: patient and RN notes reviewed Mode of arrival: ambulatory Limitations: no limitations History of Present Illness ED Provider: Lorena Perez PA-C HPI narrative: This is a 33-year-old female, with a hx of polysubstance abuse, who presents emergency department for methadone dosing. She has currently in the process switching over methadone clinics, will be going to [facility] but is unable to be seen until Thursday. Seen here yesterday where she was dose 90 mg of methadone. She is feeling well, no current complaints. MD complaint: Methadone Dose Relieving factors: none Exacerbating factors: none Associated symptoms: denies other symptoms Treatments prior to arrival: none Related Data Home Medications ?Medication ?Instructions ?Recorded ?Confirmed methadone 10 mg/mL oral 90 mg PO DAILY 11/06/23 11/06/23 concentrate (Methadone Intensol) Previous Rx's ?Medication ?Instructions ?Recorded prednisone 20 mg tablet 40 mg (2 x 20 mg) PO DAILY 5 days 05/21/23 #10 tabs Allergies Allergy/AdvReac Type Severity Reaction Status Date / Time ENVIRONMENTAL Allergy Unknown RUNNY Uncoded 11/07/23 09:34 NOSE, ITCHY EYES Review of Systems Review of Systems: Yes all other systems are reviewed and are negative Constitutional: Constitutional: Reports as per HPI [facility] Past Medical History Medical History Kidney stones Substance abuse Surgical History H/O wrist surgery Previous section Social History Social History Patient Tobacco Use Status: Tobacco use Unknown Advance Directives: No Advance Directives Information Provided: No Do you have a plan to hurt others: No Plan Physical Exam ED Vital Signs: Vital Signs - 24 hr 11/07/23 09:34 11/07/23 09:51 Temperature 98.0 F 98.0 F Pulse Rate 73 73 Respiratory Rate 16 16 Blood Pressure 106/48 L 106/48 L Pulse Oximetry 95 95 Oxygen Delivery Method Room Air Room Air BMI result Body Mass Index 31.6 Const General: cooperative, comfortable and no acute distress Orientation/consciousness: patient oriented x3 Limitations: no limitations HENIA Head: Yes normal to inspection, Yes normocephalic and Yes atraumatic Ears: hearing grossly normal bilaterally General nose exam: Normal external nose present Face and sinus: Yes normal facial exam Mouth: Normal oral and palatal mucosa present, oropharynx normal and moist mucous membranes Throat: Yes posterior oropharynx normal Eyes General: appearance normal, both eyes and all related structures Eyelids: Yes eyelids normal Conjunctivae: conjunctivae normal Sclerae: sclerae normal Pupils: Equal, round and reactive pupils present EOM: EOMs intact bilaterally Neck Neck: Yes normal visual inspection, Yes full ROM and Yes no lymphadenopathy Lymphatic: no lymphadenopathy noted Chest Chest palpation & inspection: normal inspection of the chest Resp Effort & Inspection: normal respiratory effort and able to speak in complete sentences Auscultation: clear to auscultation bilaterally Cardio Rate: regular rate Rhythm: regular rhythm GI Inspection: Yes normal to inspection Skin General skin exam: no rashes or lesions noted Trauma: no lacerations or abrasions Wounds: no wounds Neuro General: patient oriented x3 and moves all extremities Cranial nerves: Yes Equal, round and reactive pupils present Extrem General: Yes normal to inspection Right upper extremity: normal to inspection Left upper extremity: normal to inspection Right lower extremity: normal to inspection Left lower extremity: normal to inspection Medications Administered Discontinued Medications Generic Name Dose Route Start Last Admin Trade Name Nixon PRN Reason Stop Dose Admin Methadone HCl 90 mg 11/07/23 09:35 11/07/23 09:45 Methadone Hcl 20 Mg/2 Ml Oral.Conc PO 11/07/23 09:36 90 mg ONCE ONE Administration Medical Decision Making Medical Decision Making [facility] Narrative: This is a 33-year-old female, with a history of polysubstance abuse, who presents emergency department for methadone dosing. Patient was seen here yesterday where she had methadone 90 mg, she will be following up with the methadone clinic on Thursday, unable to do so over the weekend as she is a new patient. She has no current complaints. VSS. Patient given methadone dosing after confirmation with pharmacy. Advised to return with any new or worsening symptoms. She will be back here tomorrow as she is unable to get into the methadone clinic tomorrow as she has a new patient. Plan: methadone dosing Differential Diagnosis Differential Diagnoses: The differential diagnosis associated with the presentation includes metahdone dependency, opiate use disorder, opiate withdrawal, anxiety Discharge Plan Discharge Clinical Impression: Methadone dependence, Medicine refill Patient Disposition: Home, Self-Care Instructions: Medicine Refill (ED) Additional Instructions: You were seen for methadone dosing today. You received methadone 90 mg today. Follow-up with your methadone clinic as scheduled on Thursday. If any new or worsening symptoms occur including but not limited to chest pain or shortness of breath, please return for re-evaluation. Prescriptions: No Action prednisone 20 mg tablet 40 mg PO DAILY 5 Days Qty: 10 0RF methadone [Methadone Intensol] 10 mg/mL Concentrate 90 mg PO DAILY Interventions: ED Discharge Assessment Last Done: 11/07/23 09:51 Discharge Date/Time: 11/07/23 09:51 Print Language: [place]
[2023-11-07] MEDS: methADONE HCl 20 MG/2 ML ORAL.CONC 90 MG PO (09:45)
--- NOTE | 2023-11-07 09:48 | PC.NURSE ---
patient seen yesterday for methadone dose, receives 90mg. unable to get in with her new clinic until thursday. states she will be returning for dose tomorrow as well. received 90mg methadone today
[2023-11-07 09:51] VITALS: BP 106/48; PULSE 73; RESP 16; TEMP 36.7; O2SAT 95
== END 2023-11-07 09:51 | disposition home or self-care (01) ==
LOC: HO.ED 09:49
PROVIDERS: Emergency Provider Emergency Medicine
DX: F11.20 Opioid dependence, uncomplicated (principal); F19.10 Other psychoactive substance abuse, uncomplicated
CPT/HCPCS: 99282; 99283

== ENCOUNTER 2023-11-08 09:26 | Emergency (ER) | payer OTHER, SELFPAY ==
[2023-11-08 09:39] VITALS: BP 116/48; PULSE 77; RESP 16; TEMP 36.6; O2SAT 96; BMI 31.6
--- NOTE | 2023-11-08 10:22 | ED_ITS ---
HPI - General Adult General Chief complaint: General Medical Stated complaint: medication Time Seen by Provider: 11/08/23 09:51 Source: patient and RN notes reviewed Mode of arrival: ambulatory Limitations: no limitations History of Present Illness ED Provider: Lorena Perez PA-C [facility] narrative: This is a 33-year-old female who presents emergency department with complaints of methadone dosing as well as sinus pain x2 weeks. Patient reports that over the last 2 weeks she has had pain, nasal discharge and congestion. No fevers or chills. She would COVID several weeks ago and has had sinus pain since. She followed up with her PCP cover told her she was not able to start on antibiotics until she had symptoms for greater than 10 days. She states that her pain has not improved. She is also requesting methadone dosing, she is a new patient in his starting on a new clinic tomorrow. She is currently on methadone 90 mg by mouth. She received her methadone dosing in the ER yesterday. She denies any fevers, chills, chest pain, shortness of breath, abdominal pain, nausea, vomiting or diarrhea. She states that she is currently 3 months , denies any vaginal discharge or bleeding. No abdominal pain. He is anticipating on following up with [facility]. No other complaints or concerns at this time. MD complaint: Sinus pain Onset (ago): week(s) Relieving factors: none Exacerbating factors: none Associated symptoms: denies other symptoms Treatments prior to arrival: none Related Data Home Medications ?Medication ?Instructions ?Recorded ?Confirmed methadone 10 mg/mL oral 90 mg PO DAILY 11/06/23 11/06/23 concentrate (Methadone Intensol) Previous Rx's ?Medication ?Instructions ?Recorded prednisone 20 mg tablet 40 mg (2 x 20 mg) PO DAILY 5 days 05/21/23 #10 tabs amoxicillin 875 mg tablet 875 mg PO BID 7 days #14 tabs 11/08/23 Allergies Allergy/AdvReac Type Severity Reaction Status Date / Time ENVIRONMENTAL Allergy Unknown RUNNY Uncoded 11/08/23 09:40 NOSE, ITCHY EYES Review of Systems Review of Systems: Yes all other systems are reviewed and are negative Constitutional: Constitutional: Reports as per [facility] Past Medical History Medical History Kidney stones Substance abuse Surgical History H/O wrist surgery Previous section Social History Social History Patient Tobacco Use Status: Tobacco use Unknown Advance Directives: No Advance Directives Information Provided: No Do you have a plan to hurt others: No Plan Physical Exam ED Vital Signs: Vital Signs - 24 hr 11/08/23 09:39 11/08/23 11:45 Temperature 97.8 F 97.9 F Pulse Rate 77 68 Respiratory Rate 16 16 Blood Pressure 116/48 L 114/52 L Pulse Oximetry 96 95 Oxygen Delivery Method Room Air Room Air BMI result Body Mass Index 31.6 Const General: cooperative, comfortable and no acute distress Orientation/consciousness: patient oriented x3 Limitations: no limitations HENMT Other: Tenderness to palpation along the frontal maxillary and ethmoid sinuses. Head: Yes normal to inspection, Yes normocephalic and Yes atraumatic Ears: hearing grossly normal bilaterally General nose exam: Normal external nose present Face and sinus: Yes normal facial exam Mouth: Normal oral and palatal mucosa present, oropharynx normal and moist mucous membranes Throat: Yes posterior oropharynx normal Eyes General: appearance normal, both eyes and all related structures Eyelids: Yes eyelids normal Conjunctivae: conjunctivae normal Sclerae: sclerae normal Pupils: Equal, round and reactive pupils present EOM: EOMs intact bilaterally Neck Neck: Yes normal visual inspection, Yes full ROM and Yes no lymphadenopathy Lymphatic: no lymphadenopathy noted Chest Chest palpation & inspection: normal inspection of the chest Resp Effort & Inspection: normal respiratory effort and able to speak in complete sentences Auscultation: clear to auscultation bilaterally, no crackles, no rales, no rhonchi and no wheezes Cardio Rate: regular rate Rhythm: regular rhythm Heart sounds: S1 normal heart sound present and S2 normal heart sound present GI Inspection: Yes normal to inspection Skin General skin exam: no rashes or lesions noted Trauma: no lacerations or abrasions Wounds: no wounds Neuro General: patient oriented x3 and moves all extremities Cranial nerves: Yes Equal, round and reactive pupils present Extrem General: Yes normal to inspection Right upper extremity: normal to inspection Left upper extremity: normal to inspection Right lower extremity: normal to inspection Left lower extremity: normal to inspection Medications Administered Discontinued Medications Generic Name Dose Route Start Last Admin Trade Name Freq PRN Reason Stop Dose Admin Methadone HCl 90 mg 11/08/23 10:17 11/08/23 10:42 Methadone Hcl 20 Mg/2 Ml Oral.Conc PO 11/08/23 10:18 90 mg ONCE ONE Administration Medical Decision Making Medical Decision Making [facility] Narrative: this is a 33-year-old female who presents emergency department with complaints of sinus pain, cough, and is hoping to have her methadone dosing. On arrival, vital signs within normal limits. She is nontoxic appearing. She does have tenderness palpation along her maxillary and ethmoid sinuses as well as her frontal sinuses. Symptoms consistent with acute sinusitis. Will treat with amoxicillin. Also given methadone dosing in last dose letter. Given strict return precautions. She does not want to wait for COVID, flu, or RSV testing. Given return precautions. She understands and agrees with plan. She will follow-up with [facility] tomorrow morning for new patient appointment. Patient stable for discharge Differential Diagnosis Differential Diagnoses: The differential diagnosis associated with the presentation includes Sinusitis, methadone dependence, methadone dosing, viral syndrome Admission/Observation Consideration of admission/observation: Escalation of care including admission/observation considered Discharge Plan Discharge Clinical Impression: Methadone dependence Sinusitis Qualifiers: Sinusitis location: other Patient Disposition: Home, Self-Care Instructions: Rhinosinusitis (ED), Opioid Use Disorder (ED) Additional Instructions: You were seen in the emergency department for methadone dosing, you received your methadone 90 mg by mouth. You also had evidence of a sinus infection. Please take prescribed antibiotic as directed. Follow-up with your OBGYN. If any new or worsening symptoms occur including but not limited to fevers, chills, severe chest pain, shortness of breath please return for re-evaluation. Prescriptions: New amoxicillin 875 mg tablet 875 mg PO BID 7 Days Qty: 14 0RF No Action prednisone 20 mg tablet 40 mg PO DAILY 5 Days Qty: 10 0RF methadone [Methadone Intensol] 10 mg/mL Concentrate 90 mg PO DAILY Interventions: ED Discharge Assessment Last Done: 11/08/23 11:45 Discharge Date/Time: 11/08/23 11:46 Print Language: Sami
[2023-11-08] MEDS: methADONE HCl 20 MG/2 ML ORAL.CONC 90 MG PO (10:42)
[2023-11-08 11:45] VITALS: BP 114/52; PULSE 68; RESP 16; TEMP 36.6; O2SAT 95
== END 2023-11-08 11:46 | disposition home or self-care (01) ==
PROVIDERS: Emergency Provider Emergency Medicine
DX: J32.9 Chronic sinusitis, unspecified (principal); F11.20 Opioid dependence, uncomplicated; J34.89 Other specified disorders of nose and nasal sinuses; R05.9 Cough, unspecified
CPT/HCPCS: 99283